=== PATIENT | female | born 2000 | race Caucasian/White ===

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

== ENCOUNTER → 2021-11-05 | Outpatient (REF) | payer OTHER ==
[~2021-11-05] MED LIST changes: -AFRI0.058; +CIPR-249 PO; +OXYM15SP2; +VITA1CAP25
[2021-11-05 21:51] LABS: APPEARANCE, URINE CLEAR (CLEAR); BACTERIA, URINE AUTO NEGATIVE (NEGATIVE); BILIRUBIN, URINE AUTO NEGATIVE (NEGATIVE); BLOOD, URINE BLOOD NEGATIVE (NEGATIVE); COLOR, URINE YELLOW (YELLOW); GLUCOSE, URINE (UA) AUTO NEGATIVE (NEGATIVE); KETONE, URINE AUTO NEGATIVE (NEGATIVE); LEUKOCYTE ESTERASE, URINE AUTO NEGATIVE (NEGATIVE); NITRITE, URINE AUTO NEGATIVE (NEGATIVE); PROTEIN, URINE AUTO NEGATIVE (NEGATIVE); RBC, URINE AUTO 0 /HPF (0-3); SPECIFIC GRAVITY URINE AUTO 1.013 (1.002-1.035); SQUAMOUS EPITHELIAL CELL UR AU 1 /HPF (0-6); UROBILINOGEN, URINE AUTO 0.2 mg/dL (0.0-2.0); WBC, URINE AUTO 1 /HPF (0-3)
[2021-11-05 22:01] LABS: HCG, SERUM QUALITATIVE NEGATIVE (NEGATIVE)
[2021-11-05 22:11] LABS: HCG, SERUM QUANTITATIVE < 1.0 MIU/ML
[2021-11-06 00:55] LABS: GC DNA AMPLIFICATION NEGATIVE (NEGATIVE)
== END ==
LOC: M LAB REF 21:35
PROVIDERS: ATTEND Physician Assistant Medical
DX: R30.0 Dysuria (principal)

== ENCOUNTER → 2022-02-04 | Outpatient (CLI) | payer OTHER ==
[2022-02-04 13:01] LABS: HEMATOCRIT 38.6 % (36.0-47.0); HEMOGLOBIN 12.8 g/dl (12.0-15.5); MEAN CORPUSCULAR HGB CONC 33.2 g/dl (32.0-36.5); MEAN CORPUSCULAR VOLUME 87.5 fl (80.0-96.0); PLATELET COUNT, AUTOMATED 288 10^3/uL (150-450); RED BLOOD COUNT 4.41 10^6/uL (4.00-5.40); WHITE BLOOD COUNT 7.1 10^3/uL (4.0-10.0)
[2022-02-04 13:39] LABS: FREE T4 0.98 NG/DL (0.78-1.33); THYROID STIMULATING HORMONE 0.431 uIU/ML (0.463-3.98)
[2022-02-04 13:41] LABS: APPEARANCE, URINE MANUAL HAZY (CLEAR); COLOR, URINE MANUAL YELLOW (YELLOW); PH,URINE MAN 6.5 UNITS (5.0 - 7.0)
[2022-02-04 13:42] LABS: BILIRUBIN, URINE MANUAL NEGATIVE (NEGATIVE); BLOOD URINE MANUAL NEGATIVE (NEGATIVE); GLUCOSE, URINE (UA) MANUAL NEGATIVE (NEGATIVE); KETONE, URINE MANUAL 1+ mg/dL (NEGATIVE); NITRITE, URINE MANUAL NEGATIVE (NEGATIVE); PROTEIN, URINE MANUAL NEGATIVE (NEGATIVE); UROBILINOGEN, URINE MANUAL 1 MG mg/dl (NORMAL)
[2022-02-04 13:44] LABS: LEUKOCYTE ESTERASE, URINE MAN POSITIVE (NEGATIVE)
[2022-02-04 13:56] LABS: AMORPHOUS SEDIMENT, URINE SMALL AMOUNT (NEGATIVE); BACTERIA, URINE SMALL AMOUNT; HYALINE CAST, URINE NONE SEEN /lpf (0-1); MUCUS, URINE MOD AMOUNT (NEGATIVE); RBC, URINE NONE SEEN /hpf (0-3); SQUAMOUS EPITHELIAL CELL URINE MOD AMOUNT /hpf (SMALL AMT)
[2022-02-04 14:17] LABS: TOTAL 25(OH) VITAMIN D 20.5 NG/ML (30.0-100.0)
[2022-02-04 14:29] LABS: HEPATITIS B SURFACE ANTIGEN NEGATIVE (NEGATIVE)
[2022-02-04 14:57] LABS: HIV 1&2 SCREEN CENTAUR NEGATIVE (NEGATIVE)
== END ==
LOC: M LAB 12:19
PROVIDERS: ATTEND Obstetrics & Gynecology
DX: Z34.81 Encounter for supervision of other normal pregnancy, first trimester (principal); Z3A.00 Weeks of gestation of pregnancy not specified
CPT/HCPCS: 36415; 81000; 82306; 84439; 84443; 85027; 86762; 86780; 86850; 86900; 86901; 87340; 87389; G0472

== ENCOUNTER → 2022-02-05 | Outpatient (CLI) | payer OTHER | LOC: M WHC 08:40 | PROVIDERS: ATTEND Obstetrics & Gynecology | DX: Z34.81 Encounter for supervision of other normal pregnancy, first trimester (principal); Z3A.10 10 weeks gestation of pregnancy ==

== ENCOUNTER → 2022-06-17 | Outpatient (CLI) | payer OTHER ==
[~2022-06-17] MED LIST changes: +ALBU6.7H6 INH; -PROV108A INH
[2022-06-17 11:46] LABS: HEMATOCRIT 31.5 % (36.0-47.0); HEMOGLOBIN 9.8 g/dl (12.0-15.5); MEAN CORPUSCULAR HEMOGLOBIN 27.4 pg (27.0-33.0); MEAN CORPUSCULAR HGB CONC 31.1 g/dl (32.0-36.5); PLATELET COUNT, AUTOMATED 368 10^3/uL (150-450); RED BLOOD COUNT 3.58 10^6/uL (4.00-5.40); WHITE BLOOD COUNT 8.1 10^3/uL (4.0-10.0)
== END ==
LOC: M LAB 09:41
PROVIDERS: ATTEND Obstetrics & Gynecology Obstetrics
DX: Z34.82 Encounter for supervision of other normal pregnancy, second trimester (principal)

== ENCOUNTER → 2022-09-02 | Outpatient (REF) | LOC: M LAB REF 10:30 | DX: Z79.899 Other long term (current) drug therapy (principal) ==

== ENCOUNTER → 2023-01-19 | Outpatient (REF) | payer OTHER | LOC: M LAB REF 16:16 | PROVIDERS: ATTEND Physician Assistant Medical | DX: J02.9 Acute pharyngitis, unspecified (principal) ==

== ENCOUNTER → 2023-01-21 | Outpatient (REF) | payer OTHER | LOC: M LAB REF 16:09 | PROVIDERS: ATTEND Physician Assistant | DX: B34.9 Viral infection, unspecified (principal) ==

== ENCOUNTER → 2023-03-01 | Outpatient (REF) | payer OTHER ==
[2023-03-01 16:04] LABS: URINE PREG TEST NEGATIVE (NEGATIVE)
== END ==
LOC: M LAB REF 15:39
PROVIDERS: ATTEND Physician Assistant Medical
DX: N39.0 Urinary tract infection, site not specified (principal)

== ENCOUNTER → 2023-07-21 | Outpatient (CLI) | payer OTHER ==
[2023-07-21 11:26] LABS: HEMATOCRIT 40.4 % (36.0-47.0); HEMOGLOBIN 13.2 g/dl (12.0-15.5); MEAN CORPUSCULAR HEMOGLOBIN 27.7 pg (27.0-33.0); MEAN CORPUSCULAR HGB CONC 32.7 g/dl (32.0-36.5); MEAN CORPUSCULAR VOLUME 84.9 fl (80.0-96.0); PLATELET COUNT, AUTOMATED 302 10^3/uL (150-450); RED BLOOD COUNT 4.76 10^6/uL (4.00-5.40); WHITE BLOOD COUNT 6.2 10^3/uL (4.0-10.0)
[2023-07-21 11:49] LABS: INR 1.03; PARTIAL THROMBOPLASTIN TIME 31.8 SECONDS (24.8-34.2); PROTHROMBIN TIME 13.2 SECONDS (12.5-14.5)
[2023-07-21 11:50] LABS: THYROXINE (T4) 7.4 UG/DL (4.5-10.9)
[2023-07-21 11:51] LABS: ALBUMIN 3.6 G/DL (3.2-5.2); ALKALINE PHOSPHATASE 64 U/L (46-116); ALT/SGPT 13 U/L (7.0-40); AST/SGOT < 8 U/L (<34); BILIRUBIN,TOTAL 0.3 MG/DL (0.3-1.2); BLOOD UREA NITROGEN 13 MG/DL (9-23); CALCIUM LEVEL 8.9 MG/DL (8.5-10.1); CARBON DIOXIDE LEVEL 25 MMOL/L (20-31); CHLORIDE LEVEL 108 MMOL/L (98-107); CREATININE FOR GFR 0.48 MG/DL (0.55-1.30); GLOMERULAR FILTRATION RATE > 60.0 (>60); GLUCOSE, FASTING 102 MG/DL (60-100); IRON (FE) 66 UG/DL (50-170); MAGNESIUM LEVEL 1.7 MG/DL (1.8-2.4); SODIUM LEVEL 138 MMOL/L (136-145); THYROID STIMULATING HORMONE 0.323 uIU/ML (0.55-4.78); TOTAL PROTEIN 6.5 G/DL (5.7-8.2)
[2023-07-21 11:52] LABS: VITAMIN B12 LEVEL 446 PG/ML (211-911)
== END ==
LOC: M RAD 10:37
PROVIDERS: ATTEND Physician Assistant
DX: M54.50 Low back pain, unspecified (principal)

== ENCOUNTER → 2023-10-06 | Outpatient (CLI) | payer OTHER ==
[2023-10-06 12:24] LABS: BASO % 0.4 % (0.0-1.0); EOS # 0.1 10^3/uL (0.0-0.5); EOS % 1.1 % (0.0-3.0); HEMATOCRIT 38.2 % (36.0-47.0); HEMOGLOBIN 12.3 g/dl (12.0-15.5); LYMPH # 2.4 10^3/uL (1.5-5.0); LYMPH % 28.9 % (24.0-44.0); MEAN CORPUSCULAR HEMOGLOBIN 28.5 pg (27.0-33.0); MEAN CORPUSCULAR HGB CONC 32.2 g/dl (32.0-36.5); MEAN CORPUSCULAR VOLUME 88.4 fl (80.0-96.0); MONO # 0.6 10^3/uL (0.0-0.8); MONO % 6.9 % (2.0-8.0); NEUTROPHILS # 5.3 10^3/uL (1.5-8.5); NEUTROPHILS % 62.5 % (36.0-66.0); PLATELET COUNT, AUTOMATED 362 10^3/uL (150-450); RED BLOOD COUNT 4.32 10^6/uL (4.00-5.40); WHITE BLOOD COUNT 8.4 10^3/uL (4.0-10.0)
[2023-10-06 13:06] LABS: COLLAGEN EPINEPHRINE 120 SECONDS (74-162)
== END ==
LOC: M PLALAB 11:13
PROVIDERS: ATTEND Internal Medicine Hematology
DX: D50.9 Iron deficiency anemia, unspecified (principal); R58 Hemorrhage, not elsewhere classified

== ENCOUNTER → 2023-10-08 | Outpatient (CLI) | payer OTHER | LOC: M PLALAB 12:58 | PROVIDERS: ATTEND Internal Medicine Hematology | DX: R58 Hemorrhage, not elsewhere classified (principal) ==

== ENCOUNTER → 2023-12-16 | Outpatient (CLI) | payer OTHER ==
[~2023-12-16] MED LIST changes: +ONDA-282 PO; -ONDA4TAB6 PO
[2023-12-16 12:58] LABS: HIV 1&2 SCREEN NEGATIVE (NEGATIVE)
[2023-12-16 13:06] LABS: HEPATITIS C VIRUS ABY INDEX 0.02 INDEX (<0.8)
== END ==
LOC: M LAB 10:25
PROVIDERS: ATTEND Physician Assistant Medical
DX: Z11.3 Encounter for screening for infections with a predominantly sexual mode of transmission (principal)

== ENCOUNTER → 2024-02-27 | Outpatient (REF) | payer OTHER | LOC: M LAB REF 12:43 | PROVIDERS: ATTEND Physician Assistant Medical | DX: J02.9 Acute pharyngitis, unspecified (principal) ==

== ENCOUNTER → 2024-05-23 | Outpatient (CLI) | payer OTHER | LOC: M RAD 09:45 | PROVIDERS: ATTEND Physician Assistant | DX: R06.02 Shortness of breath (principal) ==

== ENCOUNTER 2024-07-14 17:55 | Emergency (ER) | payer OTHER ==
[~2024-07-14] VITALS: Ht 162.6 cm; Wt 75.0 kg
[2024-07-14 18:41] LABS: KETONE, URINE MANUAL REFLEX NEGATIVE (NEGATIVE); NITRITE, URINE MANUAL RFX NEGATIVE (NEGATIVE); PROTEIN, URINE MANUAL REFLEX NEGATIVE (NEGATIVE); SP GRAVITY,URINE MANUAL REFLEX 1.015 (1.002-1.035); UROBILINOGEN, UA MANUAL REFLEX NORMAL (NORMAL)
[2024-07-14 18:46] LABS: BASO % 0.3 % (0.0-1.0); EOS # 0.2 10^3/uL (0.0-0.5); EOS % 1.6 % (0.0-3.0); HEMATOCRIT 38.2 % (36.0-47.0); HEMOGLOBIN 12.5 g/dl (12.0-15.5); LYMPH # 2.5 10^3/uL (1.5-5.0); LYMPH % 27.1 % (24.0-44.0); MEAN CORPUSCULAR HEMOGLOBIN 28.3 pg (27.0-33.0); MEAN CORPUSCULAR HGB CONC 32.7 g/dl (32.0-36.5); MEAN CORPUSCULAR VOLUME 86.6 fl (80.0-96.0); MONO # 0.7 10^3/uL (0.0-0.8); MONO % 7.6 % (2.0-8.0); NEUTROPHILS # 5.8 10^3/uL (1.5-8.5); NEUTROPHILS % 63.2 % (36.0-66.0); PLATELET COUNT, AUTOMATED 350 10^3/uL (150-450); RED BLOOD COUNT 4.41 10^6/uL (4.00-5.40); WHITE BLOOD COUNT 9.2 10^3/uL (4.0-10.0)
[2024-07-14 18:52] LABS: RBC, URINE MAN REFLEX 0-1 /hpf (0-3); SQUAMOUS EPITHELIAL URINE RFX MOD AMOUNT /hpf (SMALL AMT)
[2024-07-14 18:53] LABS: HYALINE CAST, URINE RFX NONE SEEN /lpf (0-1); MICROSCOPIC EXAM RFX PERFORMED; MUCUS, URINE REFLEX MOD AMOUNT (NEGATIVE)
[2024-07-14 19:07] LABS: LIPASE 28 U/L (12-53)
[2024-07-14 19:08] LABS: AMYLASE 53 U/L (30-118)
[2024-07-14 19:09] LABS: ALBUMIN 3.6 G/DL (3.2-5.2); ALKALINE PHOSPHATASE 55 U/L (35-104); ALT/SGPT 24 U/L (7.0-40); AST/SGOT 12 U/L (<34); BILIRUBIN,DIRECT < 0.1 MG/DL (<0.4); BILIRUBIN,TOTAL 0.2 MG/DL (0.3-1.2); BLOOD UREA NITROGEN 6 MG/DL (9-23); CALCIUM LEVEL 9.6 MG/DL (8.5-10.1); CARBON DIOXIDE LEVEL 27 MMOL/L (20-31); CHLORIDE LEVEL 102 MMOL/L (98-107); CREATININE FOR GFR 0.45 MG/DL (0.55-1.30); GLOMERULAR FILTRATION RATE > 60.0 (>60); GLUCOSE, FASTING 81 MG/DL (60-100); POTASSIUM SERUM 3.9 MMOL/L (3.5-5.1); SODIUM LEVEL 139 MMOL/L (136-145); TOTAL PROTEIN 6.8 G/DL (5.7-8.2)
[2024-07-14 20:48] LABS: HCG, SERUM QUANTITATIVE 76733.8 MIU/ML (<4.2)
[2024-07-14 22:07] VITALS: BP 147/77; TEMP 99.4; O2SAT 99
[2024-07-14] MEDS ORDERED: SUMA100T2 (23:06)
[2024-07-14] MEDS ORDERED: VENL37TA (23:06)
[2024-07-15] MEDS: ONDANSETRON 4MG 2ML VIAL IV ONE (00:41)
[2024-07-15] MEDS: NS (Normal Saline) 0.9% 1,000 ML IV ONE (00:42)
[2024-07-15] MEDS: ONDANSETRON 4MG ORAL DISINTEGRATING TAB PO ONE (01:35)
== END 2024-07-15 01:40 | disposition home or self-care (01) ==
LOC: M ED 17:55
DX: O21.1 Hyperemesis gravidarum with metabolic disturbance (principal); G43.909 Migraine, unspecified, not intractable, without status migrainosus; Z3A.09 9 weeks gestation of pregnancy; Z79.899 Other long term (current) drug therapy
CPT/HCPCS: 76801; 80048; 80076; 81000; 81015; 82150; 83690; 84702; 85025; 87086; 87486; 87581; 87633; 87798; 93976; 96361; 96374; 99284; J2405

== ENCOUNTER 2024-07-20 21:40 | Emergency (ER) | payer OTHER ==
[~2024-07-20] VITALS: Ht 162.6 cm; Wt 73.8 kg
[~2024-07-20 21:40] MED LIST changes: +SUMA100T2; +VENL37TA
[2024-07-20 21:57] VITALS: BP 126/69; TEMP 97.7; O2SAT 99
[2024-07-20] MEDS: AMOXICILLIN 500 MG CAP PO ONE (22:30)
[2024-07-20] MEDS ORDERED: AMOX875T PO (22:31)
== END 2024-07-20 22:38 | disposition home or self-care (01) ==
LOC: M ED 21:40
DX: J02.0 Streptococcal pharyngitis (principal); F41.9 Anxiety disorder, unspecified; F32.9 Major depressive disorder, single episode, unspecified; Z79.2 Long term (current) use of antibiotics; Z79.899 Other long term (current) drug therapy

== ENCOUNTER → 2024-07-28 | Outpatient (CLI) | payer OTHER ==
[~2024-07-28] MED LIST changes: +AMOX875T PO
== END ==
LOC: M RAD 11:30
PROVIDERS: ATTEND Physician Assistant
DX: Z34.81 Encounter for supervision of other normal pregnancy, first trimester (principal); Z3A.10 10 weeks gestation of pregnancy

== ENCOUNTER 2024-08-16 12:12 | Inpatient (IN) | payer MEDICAID, OTHER ==
[~2024-08-16] VITALS: Ht 162.6 cm; Wt 71.8 kg
[~2024-08-16 12:12] MED LIST changes: -SUMA100T2; +SUMA100T2 PO
[2024-08-16 12:47] LABS: HEMOGLOBIN 11.9 g/dl (12.0-15.5); MEAN CORPUSCULAR HEMOGLOBIN 28.7 pg (27.0-33.0); MEAN CORPUSCULAR VOLUME 84.3 fl (80.0-96.0); PLATELET COUNT, AUTOMATED 308 10^3/uL (150-450); RED BLOOD COUNT 4.15 10^6/uL (4.00-5.40); WHITE BLOOD COUNT 9.3 10^3/uL (4.0-10.0)
[2024-08-16 13:12] LABS: AMPHETAMINES LEVEL URINE NEGATIVE (NEGATIVE); BARBITURATES URINE NEGATIVE (NEGATIVE); BENZODIAZEPINES URINE NEGATIVE (NEGATIVE); CANNABINOIDS URINE NEGATIVE (NEGATIVE); COCAINE METABOLITE URINE NEGATIVE (NEGATIVE); METHADONE URINE NEGATIVE (NEGATIVE); OPIATES URINE NEGATIVE (NEGATIVE); PHENCYCLIDINE URINE NEGATIVE (NEGATIVE)
[2024-08-16 13:14] LABS: ETHYL ALCOHOL (ETHANOL) < 0.003 % (0.000-0.010)
[2024-08-16 13:16] LABS: ALBUMIN 3.4 G/DL (3.2-5.2); ALKALINE PHOSPHATASE 44 U/L (35-104); ALT/SGPT 17 U/L (7.0-40); AST/SGOT 8 U/L (<34); BILIRUBIN,DIRECT 0.1 MG/DL (<0.4); BILIRUBIN,TOTAL 0.4 MG/DL (0.3-1.2); BLOOD UREA NITROGEN 7 MG/DL (9-23); CALCIUM LEVEL 8.9 MG/DL (8.5-10.1); CARBON DIOXIDE LEVEL 22 MMOL/L (20-31); CHLORIDE LEVEL 107 MMOL/L (98-107); GLOMERULAR FILTRATION RATE > 60.0 (>60); GLUCOSE, FASTING 99 MG/DL (60-100); POTASSIUM SERUM 3.6 MMOL/L (3.5-5.1); SALICYLATE LEVEL < 3.0 MG/DL (<30); SODIUM LEVEL 139 MMOL/L (136-145); TOTAL PROTEIN 6.5 G/DL (5.7-8.2)
[2024-08-16 13:18] LABS: THYROID STIMULATING HORMONE 1.469 uIU/ML (0.55-4.78)
[2024-08-16 13:43] LABS: HCG, SERUM QUANTITATIVE 59491.4 MIU/ML (<4.2)
[2024-08-16] MEDS ORDERED: ONDA-284 PO (14:40)
[2024-08-16] MEDS ORDERED: HOME MED LIST COMPLETE! XX SCH (14:45)
[2024-08-16] MEDS ORDERED: IBUPROFEN 400MG TAB PO PRN (20:20)
[2024-08-16] MEDS ORDERED: diphenhydrAMINE 25MG CAP PO PRN (20:20)
[2024-08-16] MEDS ORDERED: MOM 30ML SUSPENSION UDC PO PRN (20:20)
[2024-08-16] MEDS ORDERED: MAALOX 30 ML SUSP *UDC PO PRN (20:20)
[2024-08-16] MEDS ORDERED: traZODone 50 MG TAB PO PRN (20:20)
[2024-08-16] MEDS: ACETAMINOPHEN 325 MG TAB PO PRN (21:48)
[2024-08-17 06:34] VITALS: BP 109/64; TEMP 97.9; O2SAT 100
[2024-08-17] MEDS: NICOTINE 21MG/24HR 1 EA TRANSDERMAL TD SCH (08:42)
[2024-08-17] MEDS: PRENATAL VITAMINS CHEWABLE TABLET PO SCH (09:00)
[2024-08-17] MEDS: VENLAFAXINE **XR** 37.5 MG CAPSULE PO SCH (13:13)
[2024-08-17 16:52] VITALS: BP 118/64; TEMP 97.7; O2SAT 99
[2024-08-17] MEDS ORDERED: SUMAtriptan SUCCINATE 50MG TABLET PO PRN (18:00)
[2024-08-17] MEDS: ONDANSETRON 4MG ORAL DISINTEGRATING TAB PO PRN (20:34)
[2024-08-18 06:24] VITALS: BP 122/58; TEMP 98.1; O2SAT 99
[2024-08-18] MEDS ORDERED: VENLAFAXINE **XR** 37.5 MG CAPSULE PO SCH (09:00)
[2024-08-18 15:34] VITALS: BP 119/74; TEMP 97.6; O2SAT 98
[2024-08-19 06:40] VITALS: BP 105/60; TEMP 97; O2SAT 98
[2024-08-19] MEDS ORDERED: VENL37.598 PO (11:19)
[2024-08-19] MEDS ORDERED: HYDR-3363 PO (11:19)
== END 2024-08-19 12:59 | disposition home or self-care (01) | DRG 566 ==
LOC: M ED 12:12 → M ED INP 20:17 → M PSY 20:57
PROVIDERS: ADMIT Psychiatry & Neurology Neurology; ATTEND Psychiatry & Neurology Neurology
DX: O99.341 Other mental disorders complicating pregnancy, first trimester (principal); R45.851 Suicidal ideations; F33.1 Major depressive disorder, recurrent, moderate; F41.9 Anxiety disorder, unspecified; Z88.0 Allergy status to penicillin; Z3A.13 13 weeks gestation of pregnancy; G43.909 Migraine, unspecified, not intractable, without status migrainosus; Z79.899 Other long term (current) drug therapy; O99.351 Diseases of the nervous system complicating pregnancy, first trimester

== ENCOUNTER → 2024-10-19 | Outpatient (CLI) | payer OTHER ==
[~2024-10-19] MED LIST changes: -FLOM0.4C39 PO; +HYDR-3363 PO; +ONDA-284 PO; +TAMS-18 PO; +VENL37.598 PO
== END ==
LOC: M RAD 09:51
PROVIDERS: ATTEND Obstetrics & Gynecology
DX: O28.3 Abnormal ultrasonic finding on antenatal screening of mother (principal); Z3A.22 22 weeks gestation of pregnancy; O32.2XX0 Maternal care for transverse and oblique lie, not applicable or unspecified

== ENCOUNTER 2024-12-18 11:07 | Emergency (ER) | payer OTHER ==
[2024-12-18] MEDS ORDERED: POTA-141 FT (11:33)
[2024-12-18] MEDS ORDERED: IRON65TA2 PO (11:33)
[2024-12-18] MEDS ORDERED: TUMS500C PO (11:33)
[2024-12-18] MEDS ORDERED: FOLI1TAB11 PO (11:34)
[2024-12-18] MEDS ORDERED: NOXI1TAB PO (11:34)
== END 2024-12-18 11:08 | disposition admitted as inpatient to this hospital (09) ==
LOC: M ED 11:07
DX: Z53.21 Procedure and treatment not carried out due to patient leaving prior to being seen by health care provider (principal)

== ENCOUNTER 2024-12-18 11:14 | Outpatient (CLI) | payer OTHER ==
[~2024-12-18] VITALS: Ht 162.6 cm; Wt 72.9 kg
[2024-12-18] MEDS ORDERED: POTA-141 FT (11:33)
[2024-12-18] MEDS ORDERED: TUMS500C PO (11:33)
[2024-12-18] MEDS ORDERED: IRON65TA2 PO (11:33)
[2024-12-18] MEDS ORDERED: FOLI1TAB11 PO (11:34)
[2024-12-18] MEDS ORDERED: NOXI1TAB PO (11:34)
[2024-12-18 11:35] VITALS: BP 123/76; O2SAT 98
[2024-12-18] MEDS ORDERED: HOME MED LIST COMPLETE! XX SCH (11:35)
[2024-12-18 13:07] VITALS: BP 99/55
== END 2024-12-18 13:28 | disposition home or self-care (01) ==
LOC: M LDO 11:14
PROVIDERS: ATTEND Obstetrics & Gynecology
DX: O47.03 False labor before 37 completed weeks of gestation, third trimester (principal); O99.013 Anemia complicating pregnancy, third trimester; D50.9 Iron deficiency anemia, unspecified; Z3A.31 31 weeks gestation of pregnancy
CPT/HCPCS: 59025; G0463

== ENCOUNTER → 2025-01-04 | Outpatient (REF) ==
[~2025-01-04] MED LIST changes: +FOLI1TAB11 PO; +IRON65TA2 PO; +NOXI1TAB PO; +POTA-141 FT; +TUMS500C PO
== END ==
LOC: M LAB REF 14:36 → M CAHLAB 14:36
DX: Z01.89 Encounter for other specified special examinations (principal)

== ENCOUNTER → 2025-01-26 | Outpatient (CLI) | payer OTHER | LOC: M WHC 14:05 | PROVIDERS: ATTEND Obstetrics & Gynecology | DX: O24.410 Gestational diabetes mellitus in pregnancy, diet controlled (principal); O26.843 Uterine size-date discrepancy, third trimester ==

== ENCOUNTER 2025-01-29 22:38 | Outpatient (CLI) | payer OTHER ==
[~2025-01-29] VITALS: Ht 162.6 cm; Wt 75.3 kg
[2025-01-29 22:55] VITALS: BP 119/70
== END 2025-01-29 23:46 | disposition home or self-care (01) ==
LOC: M LDO 22:38
PROVIDERS: ATTEND Obstetrics & Gynecology
DX: O47.1 False labor at or after 37 completed weeks of gestation (principal); Z3A.37 37 weeks gestation of pregnancy
CPT/HCPCS: 59025; G0463

== ENCOUNTER → 2025-04-24 | Outpatient (REF) | payer OTHER ==
[~2025-04-24] MED LIST changes: -IBUP-1022 PO; +IBUP600T42 PO
== END ==
LOC: M LAB REF 11:47
PROVIDERS: ATTEND Physician Assistant
DX: J02.9 Acute pharyngitis, unspecified (principal)

== ENCOUNTER → 2025-05-17 | Outpatient (CLI) | payer OTHER | LOC: M RAD 16:20 | PROVIDERS: ATTEND Student in an Organized Health Care Education/Training Program | DX: N20.0 Calculus of kidney (principal); Q61.5 Medullary cystic kidney ==